=== PATIENT | female | born 1995 | race Caucasian/White ===

== ENCOUNTER 2016-08-11 12:25 | Observation (INO) | payer MEDICAID ==
[~2016-08-11] VITALS: Ht 167.6 cm; Wt 59.0 kg
[~2016-08-11 12:25] MED LIST: PREN-385 PO
[2016-08-11 12:51] VITALS: BP 106/61
[2016-08-11 14:56] LABS: APPEARANCE,URINE CLEAR (CLEAR); BILIRUBIN,URINE NEGATIVE (NEGATIVE); BLOOD, URINE NEGATIVE (NEGATIVE); COLOR,URINE YELLOW (YELLOW); LEUKOCYTE ESTERASE ,URINE NEGATIVE (NEGATIVE); NITRITE, URINE NEGATIVE (NEGATIVE); PROTEIN,URINE NEGATIVE (NEGATIVE); UGLUCOSE NEGATIVE (NEGATIVE); UROBILINOGEN,URINE 0.2 EU/dL (0.2 - 1)
[2016-08-11 15:02] LABS: AMPHETAMINE, URINE POS. ng/ml (NEG <=1000); BARBITURATE, URINE NEG. ng/ml (NEG <=200); BENZODIAZEPINE, URINE NEG. ng/mL (NEG <=200); CANNABINOID, URINE NEG. ng/mL (NEG <=50); COCAINE, URINE NEG. ng/mL (NEG <=300); OPIATE, URINE NEG. ng/mL (NEG <=2000); PHENCYCLIDINE SCREEN,URINE NEG. ng/mL (NEG <=25)
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
== END 2016-08-11 17:05 | disposition home or self-care (01) ==
LOC: MLD 12:25
PROVIDERS: ADMIT Obstetrics & Gynecology; ATTEND Obstetrics & Gynecology
DX: O26.893 Other specified pregnancy related conditions, third trimester (principal); R10.9 Unspecified abdominal pain; Z3A.32 32 weeks gestation of pregnancy
CPT/HCPCS: 76805; 80305; 81003; G0378; Q0092

== ENCOUNTER 2017-10-20 23:15 | Inpatient (IN) | payer MEDICAID ==
[~2017-10-20] VITALS: Ht 167.6 cm; Wt 81.6 kg
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
[2017-10-20] MEDS ORDERED: OXYTOCIN 20 UNITS/LR PREMIX 1,000 ML IV ONE (23:58)
[2017-10-21 00:22] VITALS: BP 110/57
[2017-10-21] MEDS ORDERED: OXYTOCIN 20 UNITS in LACTATED RINGERS 1,000 ML IV SCH (00:55)
[2017-10-21] MEDS ORDERED: MEASLES, MUMPS, AND RUBELLA 1 VIAL SQVAC PRN (01:00)
[2017-10-21] MEDS ORDERED: OXYTOCIN 10 UNITS/ML VIAL IM PRN (01:00)
[2017-10-21] MEDS ORDERED: TEMAZEPAM 15 MG CAP PO PRN (01:00)
[2017-10-21] MEDS ORDERED: BENZOCAINE/MENTHOL 20%-0.5% 60 GM CAN TP PRN (01:00)
[2017-10-21] MEDS ORDERED: oxyCODONE/APAP 5/325 MG 1 TAB TAB PO PRN (01:00)
[2017-10-21] MEDS ORDERED: HYDROcodone/APAP 5/325 MG 1 TAB TAB PO PRN (01:00)
[2017-10-21] MEDS ORDERED: IBUPROFEN 800 MG TAB PO PRN (01:00)
[2017-10-21] MEDS ORDERED: METHYLERGONOVINE 0.2 MG/ML AMP IM PRN (01:00)
[2017-10-21] MEDS ORDERED: oxyCODONE/APAP 5/325 MG 1 TAB TAB ONE (01:33)
[2017-10-21 01:35] LABS: BASOPHILS # (AUTO) 0.1 K/uL (0.00-0.22); EOSINOPHILS % (AUTO) 0.2 % (0.0-4.0); LYMPHOCYTES # (AUTO) 1.4 K/uL (2.5-16.5)
[2017-10-21 01:35] LABS: APPEARANCE,URINE CLEAR (CLEAR); BILIRUBIN,URINE NEGATIVE (NEGATIVE); BLOOD, URINE 1+ (NEGATIVE); COLOR,URINE YELLOW (YELLOW); LEUKOCYTE ESTERASE ,URINE NEGATIVE (NEGATIVE); NITRITE, URINE NEGATIVE (NEGATIVE); PH,URINE 5.5 (5.0-9.0); UGLUCOSE NEGATIVE (NEGATIVE)
[2017-10-21 01:42] LABS: BARBITURATE, URINE NEG. ng/ml (NEG <=200); BENZODIAZEPINE, URINE NEG. ng/mL (NEG <=200); CANNABINOID, URINE NEG. ng/mL (NEG <=50); COCAINE, URINE NEG. ng/mL (NEG <=300); OPIATE, URINE NEG. ng/mL (NEG <=2000); PHENCYCLIDINE SCREEN,URINE NEG. ng/mL (NEG <=25)
[2017-10-21 01:50] LABS: BASOPHILS % (AUTO) 0.3 % (0.0-2.0); MEAN CORPUSCULAR HEMOGLOBIN 16 pg (27-31); MEAN CORPUSCULAR HGB CONC 29 g/dL (33-37); MEAN CORPUSCULAR VOLUME 55.2 fL (80-94); MONOCYTES # (AUTO) 1.6 K/uL (0.8-1.0); MONOCYTES % (AUTO) 6.4 % (1.7-9.3); NEUTROPHILS # (AUTO) 21.8 K/uL (1.8-7.7); NEUTROPHILS % (AUTO) 87.3 % (42.2-75.2); PLATELET COUNT (AUTO) 353 K/uL (140-450); RED BLOOD CELL COUNT(AUTO) 3.19 MIL/uL (4.20-5.40); RED CELL DISTRIBUTION WIDTH 22.1 % (11.6-13.7)
[2017-10-21 02:01] LABS: ALBUMIN 2.4 g/dL (3.4-5.0); ANION GAP 11.9 (8-16); CARBON DIOXIDE 22.7 mmol/L (21-32); CREATININE 0.4 mg/dL (0.6-1.3); POTASSIUM 3.6 mmol/L (3.5-5.1); TOTAL BILIRUBIN 0.4 mg/dL (0.0-1.0)
[2017-10-21 02:17] LABS: RBC,URINE 0-5 (RARE) /HPF (0-5); URINE AMORPHOUS URATE 4+ /HPF (None Seen); WBC,URINE 0-5 (RARE) /HPF (0-5)
[2017-10-21 02:23] LABS: HEMATOCRIT 17.6 % (36-48)
[2017-10-21 02:24] LABS: LYMPHOCYTES % (AUTO) 5.8 % (20.5-51.1)
--- NOTE | 2017-10-21 08:30 | NUR ---
PATIENT HAS BEEN SCREENED AND CATEGORIZED LOW NUTRITION RISK. PATIENT WILL BE SEEN WITHIN 7 DAYS OF ADMISSION. 10/27/[address]
[2017-10-21 08:36] LABS: HEMATOCRIT 15.2 % (36-48); HEMOGLOBIN 4.5 g/dL (12.0-16.0)
[2017-10-21] MEDS ORDERED: DOCUSATE SOD/SENNA 50/8.6 MG 1 TAB PO SCH (21:00)
[2017-10-22 04:04] LABS: HEMATOCRIT 25.6 % (36-48)
[2017-10-22] MEDS ORDERED: IBUP-1842 PO (09:10)
[2017-10-22 15:35] LABS: RAPID PLASMA REAGIN NON-REACTIVE (Non Reactiv)
== END 2017-10-22 15:30 | disposition home or self-care (01) | DRG 560 ==
LOC: MFCC 23:40 → EDSTATUS 23:50 → MFCC 10-21 06:20
PROVIDERS: ADMIT Obstetrics & Gynecology; ATTEND Obstetrics & Gynecology
PROC: 10E0XZZ Delivery of Products of Conception, External Approach (ICD-10-PCS; principal; 2017-10-21)
PROC: 30233N1 Transfusion of Nonautologous Red Blood Cells into Peripheral Vein, Percutaneous Approach (ICD-10-PCS; 2017-10-21)
DX: O62.3 Precipitate labor (principal); O60.14X0 Preterm labor third trimester with preterm delivery third trimester, not applicable or unspecified; Z37.0 Single live birth; Z3A.36 36 weeks gestation of pregnancy
CPT/HCPCS: 36415; 80053; 80305; 81001; 85018; 85025; 86592; 86762; 86886; 86900; 86901; 86920; 87340; 99285; C1758; J2590; J7030; J7120; P9016

== ENCOUNTER 2020-04-24 15:09 | Emergency (ER) | payer MEDICAID, OTHER ==
[~2020-04-24] VITALS: Ht 162.6 cm; Wt 66.7 kg
[~2020-04-24 15:09] MED LIST changes: +IBUP-1842 PO; -PREN-385 PO
[2020-04-24 15:12] VITALS: BP 117/66
[2020-04-24] MEDS ORDERED: NACL 0.9% 500 ML IV ONE (15:20)
[2020-04-24] MEDS ORDERED: NALOXONE 0.4 MG/ML VIAL IVP ONE (15:20)
[2020-04-24] MEDS ORDERED: AMMONIA AROMATIC 1 INHL INH ONE ×2 (15:20→15:21)
[2020-04-24] MEDS ORDERED: NALOXONE PFS 2 MG/2 ML SYR ONE (15:20)
[2020-04-24 15:36] LABS: BASOPHILS # (AUTO) 0.1 K/uL (0.00-0.22); BASOPHILS % (AUTO) 0.7 % (0.0-2.0); EOSINOPHILS # (AUTO) 0.2 K/uL (0-0.4); EOSINOPHILS % (AUTO) 2.4 % (0.0-4.0); HEMATOCRIT 34.4 % (36-48); HEMOGLOBIN 11.3 g/dL (12.0-16.0); LYMPHOCYTES # (AUTO) 1.7 K/uL (2.5-16.5); MEAN CORPUSCULAR HEMOGLOBIN 27 pg (27-31); MEAN CORPUSCULAR HGB CONC 33 g/dL (33-37); MEAN CORPUSCULAR VOLUME 83.1 fL (80-94); MONOCYTES # (AUTO) 0.8 K/uL (0.8-1.0); MONOCYTES % (AUTO) 10.7 % (1.7-9.3); NEUTROPHILS # (AUTO) 4.9 K/uL (1.8-7.7); NEUTROPHILS % (AUTO) 64.2 % (42.2-75.2); PLATELET COUNT (AUTO) 300 K/uL (140-450); RED BLOOD CELL COUNT(AUTO) 4.14 MIL/uL (4.20-5.40); RED CELL DISTRIBUTION WIDTH 15.7 % (11.6-13.7); WHITE BLOOD COUNT (AUTO) 7.6 K/uL (4.8-10.8)
--- NOTE | 2020-04-24 15:52 | NUR ---
24F BIBA for ALOC in the field, found down inside [employer]. [facility] ALS crew 145 reports she had been arrested earlier today and released for meth use. Paramedics report finding citation in her belongings. Visitor Services Representative reports she was responding to painful stimuli in the field, glucose stick 96, HR 110, SAT 99. Upon entering gag reflex intact in ambulance bay. IN room 3, no response to narcan, responded to ammonia by wincing face and nose, pulling mask down, pt able to take her own shoes off and flop them to the floor in room 3. No signs of trauma, not responding to painful to painful stimuli in room 3, tears rolling down her cheeks, pt squinting eyes when trying to assess pupils, pt not responding verbally or opening eyes. No facial droop noted, Skin is dry warm, intact, pt dressed, clean clothing, well appearing, no amu, respirations e/u. abdomen is soft nondistedned nonTTP. pt able to turn to right recumbant by herself. Personal belongings left in room by paramedics in plastic bag. MD bedside pending lab results and further orders
[2020-04-24 15:57] LABS: ALBUMIN 3.5 g/dL (3.4-5.0); ANION GAP 11.5 (8-16); ASPARTATE AMINOTRANSFERASE 14 U/L (15-37); CARBON DIOXIDE 27.2 mmol/L (21-32); CHLORIDE 104 mmol/L (98-107); CREATININE 0.7 mg/dL (0.6-1.3); GFR ARICAN-AMERICAN 130 mL/min (>90); GLUCOSE 134 mg/dL (74-106); POTASSIUM 3.7 mmol/L (3.5-5.1); SODIUM SERUM 139 mmol/L (136-145); TOTAL BILIRUBIN 0.2 mg/dL (0.0-1.0); UREA NITROGEN, BLOOD 14 mg/dL (7-18)
[2020-04-24 15:59] LABS: ACETAMINOPHEN < 0.5 ug/ml (10-30); SALICYLATE < 2.8 mg/dL (2.8-20.0)
--- NOTE | 2020-04-24 16:08 | NUR ---
Pt unable to give urine sample at this time
[2020-04-24 17:30] LABS: APPEARANCE,URINE SL CLOUDY (CLEAR); BILIRUBIN,URINE NEGATIVE (NEGATIVE); BLOOD, URINE 1+ (NEGATIVE); COLOR,URINE YELLOW (YELLOW); LEUKOCYTE ESTERASE ,URINE TRACE (NEGATIVE); NITRITE, URINE POSITIVE (NEGATIVE); UGLUCOSE NEGATIVE (NEGATIVE)
[2020-04-24 17:46] LABS: BARBITURATE, URINE NEGATIVE ng/ml (NEG <=200); BENZODIAZEPINE, URINE NEGATIVE ng/mL (NEG <=200); CANNABINOID, URINE POSITIVE ng/mL (NEG <=50); COCAINE, URINE NEGATIVE ng/mL (NEG <=300); OPIATE, URINE NEGATIVE ng/mL (NEG <=2000); PHENCYCLIDINE SCREEN,URINE NEGATIVE ng/mL (NEG <=25)
[2020-04-24 17:49] LABS: RBC,URINE 11-20 (MOD) /HPF (0-5); WBC,URINE 0-5 /HPF (0-5)
--- NOTE | 2020-04-24 18:03 | NUR ---
Spoke to patients grandmother regarding picking patient up. Grandmother states she is not welcome back into her home and will need to find a place to go after discharge. Attemped to call mental health social worker, no answer.
--- NOTE | 2020-04-24 18:10 | NUR ---
Pt resting semifowlers eyes closed arousable to voice. Pt denies any pain at this time. Reports she is very tired. Pt admits to using meth earlier today, does not know amount. I informed her that grandmother doesn't want her back at the house due to meth use. Currently no dizziness, VERGARA, fever, CP/palpatations, SOB, abdominal/urinary/bowel issues at this time. A&O x3, speaks in full clear sentences, tachycardic, follows commands. No AMU, respirations e/u. ZACARIAS. Pending social work and dispo
--- NOTE | 2020-04-24 19:15 | NUR ---
Handoff given to EVELIO Recinos
[2020-04-24] MEDS ORDERED: cefTRIAXone 1,000 MG VIAL ONE (19:55)
--- NOTE | 2020-04-24 22:25 | NUR ---
Nathanael lazaro in [facility] - 04/24/20 at 2226 by LALA Spoke with regarding pt d/c. Per kavon ARANA case management/social service agency director
--- NOTE | 2020-04-24 22:26 | NUR ---
Spoke with MD regarding pt d/c. Per MD, tried to reach case management/social work msw multiple times with no response. MD states pt can stay overnight until social work case manager arrived in AM. Pt resting in bed, eyes closed, breathing even and unlabored, VSS.
--- NOTE | 2020-04-25 01:34 | NUR ---
Pt resting in bed with eyes closed. Breathing even and unlabored, VSS.
[2020-04-25 03:26] VITALS: BP 111/67
--- NOTE | 2020-04-25 03:27 | NUR ---
Patient discharged with v/s stable. Written and verbal after care instructions given and explained. Patient alert, oriented and verbalized understanding of instructions. Carried with steady gait. All questions addressed prior to discharge. ID band removed. Patient advised to follow up with PMD. Rx of keflex given. Patient educated on indication of medication including possible reaction and side effects. Opportunity to ask questions provided and answered.
--- NOTE | 2020-04-25 20:21 | NUR ---
LATE ENTRY-- JEMIMAEPLAVERNN ENDED AT 2034
--- NOTE | 2020-04-25 20:21 | NUR ---
LATE ENTRY-- 0.9% NS INFUSION ENDED AT 1650
--- NOTE | 2020-04-27 13:18 | NUR ---
LATE ENTRY---Culture results received from lab. Results shown to Dr. Allred . No new orders needed at this time. Treatment appropriate.
== END 2020-04-25 03:27 | disposition home or self-care (01) ==
LOC: MED 15:09
DX: F19.10 Other psychoactive substance abuse, uncomplicated (principal); R41.82 Altered mental status, unspecified; Z79.899 Other long term (current) drug therapy
CPT/HCPCS: 36415; 80053; 80305; 81001; 81025; 84702; 85025; 87086; 96361; 96365; 96375; 99285; G0480; G0482; J0696; J2310; J7030; 99284

== ENCOUNTER 2020-11-10 09:10 | Emergency (ER) | payer MEDICAID ==
[~2020-11-10] VITALS: Ht 162.6 cm; Wt 49.0 kg
[2020-11-10 09:10] VITALS: BP 128/92
--- NOTE | 2020-11-10 09:10 | NUR ---
Pt biba by [facility] and placed in bed 7. [employer] at bedside.
--- NOTE | 2020-11-10 09:13 | NUR ---
[facility]
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
--- NOTE | 2020-11-10 09:15 | NUR ---
PD at bedside.
--- NOTE | 2020-11-10 09:21 | NUR ---
Dr. Franks at bedside for evaluation.
--- NOTE | 2020-11-10 09:36 | NUR ---
RAD at bedside
--- NOTE | 2020-11-10 09:39 | NUR ---
Pt transported to CT by ita.
--- NOTE | 2020-11-10 09:52 | NUR ---
Pt returned from CT by ita. Placed back onto alarm security or surveillance monitor. Bed locked in lowest position, side rails x 2.
[2020-11-10 09:55] LABS: BASOPHILS # (AUTO) 0.1 K/uL (0.00-0.22); BASOPHILS % (AUTO) 0.8 % (0.0-2.0); EOSINOPHILS # (AUTO) 0.2 K/uL (0-0.4); EOSINOPHILS % (AUTO) 2.2 % (0.0-4.0); HEMATOCRIT 35.3 % (36-48); HEMOGLOBIN 11.6 g/dL (12.0-16.0); LYMPHOCYTES # (AUTO) 1.8 K/uL (2.5-16.5); LYMPHOCYTES % (AUTO) 25.9 % (20.5-51.1); MEAN CORPUSCULAR HEMOGLOBIN 27 pg (27-31); MEAN CORPUSCULAR HGB CONC 33 g/dL (33-37); MEAN CORPUSCULAR VOLUME 81.4 fL (80-94); MONOCYTES # (AUTO) 0.6 K/uL (0.8-1.0); MONOCYTES % (AUTO) 8.9 % (1.7-9.3); NEUTROPHILS # (AUTO) 4.3 K/uL (1.8-7.7); NEUTROPHILS % (AUTO) 62.2 % (42.2-75.2); PLATELET COUNT (AUTO) 258 K/uL (140-450); RED BLOOD CELL COUNT(AUTO) 4.34 MIL/uL (4.20-5.40); RED CELL DISTRIBUTION WIDTH 16.9 % (11.6-13.7)
[2020-11-10] MEDS ORDERED: NACL 0.9% 1,000 ML IV ONE (10:00)
[2020-11-10 10:16] LABS: ACETAMINOPHEN < 0.5 ug/ml (10-30); SALICYLATE < 2.8 mg/dL (2.8-20.0)
[2020-11-10 10:21] LABS: ALBUMIN 3.6 g/dL (3.4-5.0); CARBON DIOXIDE 25.5 mmol/L (21-32); CREATININE 0.6 mg/dL (0.6-1.3); POTASSIUM 3.5 mmol/L (3.5-5.1); THYROID STIMULATING HORMONE 0.26 uIU/mL (0.34-3.74); TOTAL BILIRUBIN 0.2 mg/dL (0.0-1.0)
--- NOTE | 2020-11-10 11:00 | NUR ---
# 16 FR Logan catheter with utilizing sterile technique. Immediate return of 200 ml yellow urine noted. Pt tolerated procedure well.
[2020-11-10 11:18] LABS: APPEARANCE,URINE CLOUDY (CLEAR); BILIRUBIN,URINE NEGATIVE (NEGATIVE); BLOOD, URINE 3+ (NEGATIVE); COLOR,URINE YELLOW (YELLOW); LEUKOCYTE ESTERASE ,URINE 2+ (NEGATIVE); NITRITE, URINE POSITIVE (NEGATIVE); UGLUCOSE NEGATIVE (NEGATIVE)
--- NOTE | 2020-11-10 11:30 | NUR ---
Patient presents with both eyes closed laying on left side. conference translator in place. VSS; respirations even/unlabored. Bed locked in lowest position, side rails x 1, call light in reach.
[2020-11-10 11:36] LABS: RBC,URINE 20-50 /HPF (0-5); WBC,URINE 20-60 /HPF (0-5)
[2020-11-10 11:39] LABS: TRICHOMONAS,URINE Few /HPF (None Seen)
[2020-11-10 11:44] LABS: BARBITURATE, URINE NEGATIVE ng/ml (NEG <=200); BENZODIAZEPINE, URINE NEGATIVE ng/mL (NEG <=200); COCAINE, URINE NEGATIVE ng/mL (NEG <=300); OPIATE, URINE NEGATIVE ng/mL (NEG <=2000); PHENCYCLIDINE SCREEN,URINE NEGATIVE ng/mL (NEG <=25)
[2020-11-10 11:45] LABS: CANNABINOID, URINE POSITIVE ng/mL (NEG <=50)
--- NOTE | 2020-11-10 12:30 | NUR ---
IV removed, catheter intact and site benign. Applied folded 4x4 gauze and tape to stop bleeding.
[2020-11-10] MEDS ORDERED: cefTRIAXone 1,000 MG in LIDOCAINE MPF 1% 2.1 ML IM ONE (12:35)
[2020-11-10] MEDS ORDERED: LIDOCAINE MPF 1% 5 ML ONE (12:35)
[2020-11-10] MEDS ORDERED: cefTRIAXone 1,000 MG VIAL ONE (12:35)
--- NOTE | 2020-11-10 12:39 | NUR ---
Officer Nilesh of [place] [employer] at bedside with patient
[2020-11-10 12:48] VITALS: BP 116/90
--- NOTE | 2020-11-10 12:48 | NUR ---
PATIENT BIB [place] [employer]. PATIENT EXAMINED BY DR. JADE. PATIENT MEDICALLY CLEARED AND RELEASED IN CUSTODY IN STABLE CONDITION. ORIGINAL PRE-BOOK FORM GIVEN TO [place] [employer]. PT LEFT IN HANDCUFFS WITH PD.
== END 2020-11-10 12:48 ==
LOC: MED 09:10
DX: N39.0 Urinary tract infection, site not specified (principal); A59.01 Trichomonal vulvovaginitis; F15.10 Other stimulant abuse, uncomplicated
CPT/HCPCS: 36415; 70450; 71045; 80053; 80305; 81001; 81025; 84443; 85025; 87086; 93005; 96360; 96372; 99285; G0480; G0482; J0696; J2001; J7030

== ENCOUNTER 2021-06-25 15:04 | Emergency (ER) | payer MEDICAID ==
[~2021-06-25] VITALS: Ht 165.1 cm; Wt 54.4 kg
[2021-06-25 15:06] VITALS: BP 129/83
--- NOTE | 2021-06-25 15:10 | NUR ---
PT BIBA TO BED 10
--- NOTE | 2021-06-25 15:10 | NUR ---
[place] [employer] AT BEDSIDE
--- NOTE | 2021-06-25 15:17 | NUR ---
DR ASH AT BEDSIDE EXAMINING PT
--- NOTE | 2021-06-25 15:20 | NUR ---
PT MOVED TO BED 4
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
[2021-06-25 15:50] VITALS: BP 129/83
--- NOTE | 2021-06-25 15:50 | NUR ---
Patient discharged with v/s stable. Written and verbal after care instructions ABOUT SYNCOPE given and explained. Patient verbalized understanding. Ambulatory with steady gait. All questions addressed prior to discharge. Advised to follow up with PMD.
== END 2021-06-25 15:50 | disposition home or self-care (01) ==
LOC: MED 15:04
DX: R55 Syncope and collapse (principal); Z79.899 Other long term (current) drug therapy
CPT/HCPCS: 93005; 99283